=== PATIENT | male | born 1980 ===

== ENCOUNTER 2021-03-30 16:31 | Emergency (ER) | payer SELFPAY ==
[2021-03-30] MEDS ORDERED: Ibuprofen 200 MG TAB ONE (19:30)
[2021-03-30] MEDS ORDERED: Acetaminophen 500 MG TAB ONE (19:30)
== END 2021-03-30 19:27 | disposition home or self-care (01) ==
LOC: CSHERS 16:31
DX: M25.552 Pain in left hip (principal)